=== PATIENT | female | born 1950 | race Caucasian/White ===

== ENCOUNTER → 2019-06-10 | Outpatient (CLI) | payer MEDICARE, OTHER ==
[~2019-06-10] MED LIST: AMLODIPINE BESY10 MG PO; ATIVAN1 MG PO; AZOR 5 MG-20 MG1 TA1 PO; BACTRIM DS 8001 TA1 PO; BENAZEPRIL20 MG PO; CARVEDILOL6.25 MG PO; CLINDAMYCIN150 MG PO; CLOTRIMAZOLE TR10 MG PO; COREG6.25 MG PO; CYCLOBENZAPRINE5 M3 PO; FENOFIBRATE145 M1 PO; FENOFIBRATE160 MG PO; GLIPIZIDE5 MG PO; GLUCOPHAGE500 M1 PO; GOOD NEIGHBOR150 M1 PO; HUMALOG100 U/ML SC; JANUMET XR 50-1 EACH PO; JANUVIA100 MG PO; LEVEMIR FLEX100 U/ML SC; LEVEMIR10 ML SC; LEVEMIR100 UNIT/1 SC; LISINOPRIL10 M1 PO; LISINOPRIL5 MG PO; LOSARTAN-HCTZ1 EAC1 PO; MELOXICAM15 MG PO; METFORMIN1000 MG PO; MOBIC15 MG PO; NORVASC5 MG PO; PAROXETINE20 MG PO; PAXIL10 MG PO; PRAVACHOL80 M1 PO; QUETIAPINE FUMA25 M1 PO; RANITIDINE HCL150 M1 PO; VALSARTAN-HCTZ1 EAC2 PO; VICODIN 5-3001 EACH PO; VITAMIN D22000 UNIT PO
== END | disposition home or self-care (01) ==
LOC: ORTHO 00:46
DX: M17.0 Bilateral primary osteoarthritis of knee (principal); M85.862 Other specified disorders of bone density and structure, left lower leg; M85.861 Other specified disorders of bone density and structure, right lower leg; M79.89 Other specified soft tissue disorders; M25.462 Effusion, left knee

== ENCOUNTER 2019-08-14 13:37 | Emergency (ER) | payer MEDICARE, OTHER ==
[~2019-08-14] VITALS: Ht 165.1 cm; Wt 131.5 kg
--- NOTE | ~2019-08-14 | EKG ---
[place], [place] ELECTROCARDIOGRAM REPORT NAME: JOLLY VICKERS UNIT #: [id number] ROOM: DOCTOR: EPIPHANY DRAFT REPORT BIRTHDATE: [birth year] [facility] Test Date: 2019-08-14 Test Time: 14:39:00 Pat Name: JOLLY VICKERS Department: Room: Gender: F Senior Data Analyst: : 1950 Requested By: PIETRO BAUMANN Order Number: [id number] Reading MD: Millie Jose Measurements Intervals [place] Rate: 107 P: 32 IA: 194 QRS: 47 QRSD: 105 T: -90 QT: 317 QTc: 423 Interpretive Statements Sinus tachycardia Low voltage, precordial leads Borderline repolarization abnormality Electronically Signed On 08-15-2019 11:13:20 PST by Millie Jose CM:EKGRPT:ELECTROCARDIOGRAM REPORT [id number] PIETRO BAUMANN EPIPHJOSEPHINE DRAFT REPORT PIETRO BAUMANN
[~2019-08-14 13:37] MED LIST changes: -AMLODIPINE BESY10 MG PO; -CARVEDILOL6.25 MG PO; -FENOFIBRATE145 M1 PO; -GLUCOPHAGE500 M1 PO; -JANUVIA100 MG PO; -LEVEMIR100 UNIT/1 SC; -LOSARTAN-HCTZ1 EAC1 PO; -MELOXICAM15 MG PO; -PAROXETINE20 MG PO; -QUETIAPINE FUMA25 M1 PO; -RANITIDINE HCL150 M1 PO
[2019-08-14 14:17] LABS: HEMATOCRIT 36.4 % (37.0-47.0); HEMOGLOBIN 12.1 g/dl (12.0-16.0); MEAN CELL VOLUME 87.1 fl (81.0-99.0); MEAN CORPUSCULAR HGB 28.9 pg (27.0-31.0); MEAN CORPUSCULAR HGB CONC 33.2 g/dl (33.0-37.0); MEAN PLATELET VOLUME 10.9 fl (9.6-12.3); PLATELET COUNT AUTOMATED 273 10*3/uL (130-400); RED BLOOD COUNT 4.18 10*6/uL (4.10-5.10); WHITE BLOOD COUNT 24.5 10*3/uL (4.8-10.8)
[2019-08-14 14:28] LABS: ACT PARTIAL THROMBO TIME 25.3 SECONDS (20.0-32.1)
[2019-08-14 14:35] LABS: BASOPHILS 1 % (0-1); TOTAL CELLS COUNTED 100 #CELLS
[2019-08-14 14:36] LABS: PLATELET SUFFICIENCY NORMAL (NORMAL)
[2019-08-14 14:43] LABS: ALBUMIN 3.2 gm/dl (3.1-4.5); CREATININE 1.18 mg/dL (0.55-1.02); POTASSIUM 3.7 mmol/L (3.5-5.1); TOTAL PROTEIN 7.4 gm/dL (6.4-8.2)
[2019-08-14 15:10] LABS: LIPASE 147 U/L (73-393)
[2019-08-14 15:16] LABS: TROPONIN I < 0.015 ng/ml (<0.045)
[2019-08-14 15:21] LABS: BILIRUBIN NEGATIVE (NEGATIVE); BLOOD 1+ (NEGATIVE); CLARITY CLEAR (CLEAR); COLOR YELLOW (YELLOW); GLUCOSE 3+ (NEGATIVE); KETONE NEGATIVE (NEGATIVE); LEUKO ESTERASE NEGATIVE (NEGATIVE); NITRITE NEGATIVE (NEGATIVE); PH 5.5 (5.0-9.0); SPECIFIC GRAVITY 1.015 (1.005-1.030); UROBILINOGEN 0.2 E.U./dl (0.2-1.0)
[2019-08-14 15:23] LABS: EPITHELIAL CELLS 0-2; WBC 0-2 wbc/hpf (0-5)
[2019-08-14] MEDS ORDERED: QUETIAPINE FUMA25 M1 PO (15:53)
[2019-08-14] MEDS ORDERED: CARVEDILOL6.25 MG PO (15:54)
[2019-08-14] MEDS ORDERED: JANUVIA100 MG PO (15:54)
[2019-08-14] MEDS ORDERED: PAROXETINE20 MG PO (15:54)
[2019-08-14] MEDS ORDERED: PRAVACHOL80 M1 PO (15:55)
[2019-08-14] MEDS ORDERED: LOSARTAN-HCTZ1 EAC1 PO (15:55)
[2019-08-14] MEDS ORDERED: AMLODIPINE BESY10 MG PO (15:55)
[2019-08-14] MEDS ORDERED: MELOXICAM15 MG PO (15:56)
[2019-08-14] MEDS ORDERED: GLUCOPHAGE500 M1 PO (15:56)
[2019-08-14] MEDS ORDERED: FENOFIBRATE145 M1 PO (15:56)
[2019-08-14] MEDS ORDERED: LEVEMIR100 UNIT/1 SC (15:57)
[2019-08-14] MEDS ORDERED: RANITIDINE HCL150 M1 PO (15:57)
== END 2019-08-14 18:53 | disposition short-term general hospital (02) ==
LOC: ED 13:37
PROVIDERS: Emergency Medicine; Nurse Practitioner Family
DX: H53.9 Unspecified visual disturbance (principal); R50.9 Fever, unspecified; R42 Dizziness and giddiness; E11.65 Type 2 diabetes mellitus with hyperglycemia; R52 Pain, unspecified; K21.9 Gastro-esophageal reflux disease without esophagitis; E78.5 Hyperlipidemia, unspecified; M10.9 Gout, unspecified; Z88.0 Allergy status to penicillin; Z88.8 Allergy status to other drugs, medicaments and biological substances; Z79.899 Other long term (current) drug therapy; Z79.4 Long term (current) use of insulin